=== PATIENT | male | born 1975 | race Caucasian/White ===

== ENCOUNTER 2019-12-23 08:53 | Outpatient (RCR) | payer BC, SELFPAY ==
--- NOTE | 2019-12-23 10:13 | PTOPEVAL ---
Thank you for referring Kennedy Roland to [facility].? The patient is scheduled to be seen for therapy? ____x/week for ___ weeks. Please review, sign, date and return this plan of care CARRIE. I agree with and certify that the following plan of care is medically necessary. Referring Physician Date Admitting Provider: Attending Provider: PHYSICIAN NOT ON STAFF Referring Provider: *PT Outpatient Evaluation Start: 12/23/19 09:12 Freq: Status: Active Protocol: Document 12/23/19 09:10 SARAH (Rec: 12/23/19 10:10 SARAH [email or web address]) Therapy Assessment Status Assessment Status Assessment Status Evaluation Evaluation Information Problem Diagnosis R achilles tendinopathy Onset 12/21/19 Subjective Information patient reports he began Query Text:As Reported By Patient/ having pain in the heel last Family year. he reports he had surgery for a bone spur back in february of last year. he reports he had a few follow ups with MD earlier this year, but has had continued pain in the R heel. he reports he has built up scar tissue formation and achilles tendinopathy of the R ankle. he reports this is his first bout of therapy to try and heal the pain prior to any more shots or surgeries. he reports he has pain all the time in the R heel and achilles tendon. he reports increased pain with nearly all movements, but more pain with walking, stairs, and driving. he reports he has to drive and control pedals with his L foot due to pain. Prior Level of Function Comments Additional Prior Level of Function he reports pain for more than Comments a year. he reports prior to surgery and since surgery he has been in pain and walking with a limp. 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 he reports a lot of walking at work. Pain Assessment Timing of Pain Assessment Timing of Pain Assessment Assessment Pain Scale Pain Scale Used Numeric (1 - 10) Self Report Pain Assessment Right Posterior Heel(s) Reported Pain Level
--- NOTE | 2020-02-09 14:20 | PTOPEVAL ---
Thank you for referring Kennedy Roland to [facility].? The patient is scheduled to be seen for therapy? ____x/week for ___ weeks. Please review, sign, date and return this plan of care CARRIE. I agree with and certify that the following plan of care is medically necessary. Referring Physician Date Admitting Provider: Attending Provider: PHYSICIAN NOT ON STAFF Referring Provider: *PT Outpatient Evaluation Start: 12/23/19 09:12 Freq: Status: Discharge Protocol: Document 02/04/20 13:59 [facility] (Rec: 02/04/20 14:55 [facility] [email or web address]) Therapy Assessment Status Assessment Status Assessment Status Discharge Evaluation Information Problem Diagnosis R achilles tendinopathy Additional Evaluation Detail LEFS = 46% functionally declined Subjective Information patient reports he feels good Query Text:As Reported By Patient/ this date. he reports no Family pain in the R ankle, but still some tightness and soreness at times with increased walking and activities. however, he reports he is able to manage any pain with stretching and exercises at home. Pain Assessment Timing of Pain Assessment Timing of Pain Assessment Assessment Self Report Self Report Pain Level 0 Pain Score Pain Score 0: Self Report Lower Extremity Range of Motion Ankle/Foot Range of Motion Right Ankle Dorsiflextion With Knee Extension 15 Range of Motion - Active Ankle Plantarflexion Range of Motion - 50 Active Query Text: Lower Extremity Muscle Strength Testing Ankle Strength Right Ankle Dorsiflexion Strength 5 Normal Ankle Plantarflexion Strength 4+ Good + Muscle Length Testing Muscle Length Testing Gastrocnemius Length (L) WFL,(R) Mild Tightness Gait Assessment Gait Pattern Assessment Gait Pattern No Deviations/Normal Stair Climbing Assessment Stair Climbing Assessment Stair Climbing Comments patient ambulates up stairs with reciprocal gait mechanincs. he ambulates down steps with marked time pattern , and is able to ambulate down steps with reciprocal gait mechanincs but presents with pulling/tightness/discomfort in the R ankle. General Exercise General Exercises Exercise Description -10 minutes passive calf Query Text:Record Sets, Reps, stretching and R ankle DF rom
== END 2020-02-04 09:41 | disposition home or self-care (01) ==
LOC: CHSPT 08:53
DX: M67.871 Other specified disorders of synovium, right ankle and foot (principal); M24.571 Contracture, right ankle
CPT/HCPCS: 97014; 97035; 97110; 97140; 97161; 97542; G0283

== ENCOUNTER 2023-11-22 06:56 | Outpatient (CLI) | payer BC, SELFPAY ==
[2023-11-22 07:21] LABS: Hematocrit 46.1 % (40.0-54.0); Hemoglobin 16.1 g/dL (14.0-18.0); Mean Corpuscular HGB Conc 34.9 g/dL (32-36); Mean Corpuscular Hemoglobin 29.5 pg (27.0-31.0); Mean Corpuscular Volume 84.4 fL (78.0-102.0); Mean Platelet Volume 9.2 fl (8.7-11.0); Platelet Count Result 268 K/mm3 (150-420); Red Blood Count 5.46 M/mm3 (4.70-6.10); Red Cell Distribution Width 12.6 % (11.6-14.4); White Blood Count 8.7 K/mm3 (4.8-10.8)
[2023-11-22 08:35] LABS: Alanine Aminotransferase 25 U/L (16-63); Albumin Level 3.8 g/dL (3.4-5.0); Alkaline Phosphatase 98 U/L (46-116); Anion Gap 5 mmol/L (4-12); Aspartate Amino Transferase 19 U/L (15-37); Bilirubin,Total 0.5 mg/dL (0.00-1.00); Blood Urea Nitrogen 16 mg/dL (7-18); Calcium 8.5 mg/dL (8.5-10.1); Carbon Dioxide 29 mmol/L (21-32); Chloride 102 mmol/L (98-108); Cholesterol 173 mg/dL (0-200); Estimated Glomerular Filt Rate 60; Glucose 87 mg/dL (70-99); HDL Direct 32 mg/dL (40-60); LDL Cholesterol Calculated 104 mg/dL (<130); Osmolality Calculated 282 mOsm/kg (285-295); Potassium 4.4 mmol/L (3.5-5.1); Prostate Specific Antigen 0.3 ng/mL (< OR = 4.0); Sodium 136 mmol/L (136-145); Total Protein 6.8 g/dL (6.4-8.2); Triglycerides 186 mg/dL (0-150)
== END 2023-11-22 06:57 | disposition home or self-care (01) ==
LOC: CHSLAB 06:58
PROVIDERS: PCP Internal Medicine; Visit Provider Internal Medicine
DX: Z13.6 Encounter for screening for cardiovascular disorders (principal); Z12.5 Encounter for screening for malignant neoplasm of prostate
CPT/HCPCS: 36415; 80053; 80061; 84153; 85025; G0103

== ENCOUNTER 2024-07-10 00:13 | Day surgery (SDC) | payer BC, SELFPAY ==
[2024-07-03 11:47] VITALS: BMI 36.9
--- OUTSIDE RECORDS SUMMARY | 2024-07-10 00:16 | XMS_ITS | Data Portability ---
Author Organization [facility] Address [address] [place] [address] Assessment Encounter Date Assessment Date Assessment LastModified by Organization Details LastModified Time 2023 2023 obtain old records obtain blood work prescribed Victoza see me back in 6 months schedule colonoscopy Not available 12/07/2023 15:24:30 05/18/2024 05/18/2024 colonoscopy continue with GLP 1 follow up 6 months smoking cessation [email or web address] Not available 05/18/2024 13:34:42 Plan of Treatment Reminders Order Date Submit Date Provider Last Modified By Organization Details Last Modified Time Details Appointments ANY 15 2024 09:30A Tamera Lr MD Not available Not available Not available Lab PSA, total, serum or plasma 2023 024 [facility]), [address] [place] [address], [id number], 11/22/2023 12:16:35 CBC w/ auto diff 2023 024 [facility]), [address] [place] [address], [id number], 11/22/2023 09:43:05 CMP, serum or plasma 2023 024 [facility]), [address] [place] [address], [id number], 11/22/2023 12:16:34 lipid panel, serum 2023 024 [facility] [address] [facility], [place], [address], 11/22/2023 12:16:34 Referral None recorded. Procedures colonosco py screening (PROC) 2024 025 [facility], [address], [id number], [place], [address], 06/18/2024 10:42:31 Surgeries None recorded. Imaging None recorded. Medication Orders None recorded. Patient TargetsNo targets recorded. Patient Instructions Encounter Date Encounter Id Patient Instructions Last Modified By Organization Details Last Modified Time 2023 [id number] A healthy lifestyle: care instructions [email or web address] Not available 12/07/2023 15:24:56 05/18/2024 [id number] A healthy lifestyle: care instructions [email or web address] Not available 05/18/2024 13:16:44 Quitting Tobacco : Care Instructions [email or web address] Not available 05/18/2024 13:16:44 Reason for Referral None Reported. Results Created Date Observation Date Name Description Value Unit Range Abnormal Flag Note LastModifiedBy Organization Detail LastModifiedTime 06/11/1905/25/2024 elect aneslmo smithgr am No observ ation record ed. BARCODE Not Available 2024 13:52:04 Result Notes None recorded. Problems Name Problem SNOMED Code Status Onset Date Resolution Date Notes Provider Name and Address Organization Details Recorded Time Obesity 021063992 Active 024 Andrés Lr MD Attn: Accounting ,[address] [facility], [place], [address] , [facility] 12/07/2023 15:24:37 Problem Notes None recorded. Procedures Surgical History None recorded. Imaging Results Imaging Date Name Status LastModified by Organization Details LastModified Time 05/25/2024 electrocardiogram completed BARCODE Informa tion not available 06/10/2024 13:52:04 Procedure Notes None recorded. Medical Equipment None Reported. Allergies No known drug allergies Medications Name Sig Start Date Stop Date Status Note LastModified by Organization Details LastModified Time Victoza 2-Jeromy 0.6 mg/0.1 mL (18 mg/3 mL) subcutaneous pen injector Inject 1.5 mg every day by subcutaneou s route. active Not Available Not Available No t Available Ozempic 0.25 mg or 0.5 mg (2 mg/3 mL) subcutaneous pen injector Inject 0.5 mg every week by subcutaneou s route. active Not Available Not Available No t Available Vitals Date Recorded Body height Body mass index (BMI) Body weight Heart rate Oxygen saturation Oxygen saturation in Arterial blood by Pulse oximetry Systolic blood pressure Diastolic blood pressure Provider Name and Address Organization Details Last Updated DateTime 4 185.42 cm 37.3 kg/m2 635194. 93 g 75 /min 97 % 97 % 120 mm[Hg] 90 mm[Hg] Aminata Johnson MA [facility] 4 11:52:21 Date Recorded Body height Body mass index (BMI) Body weight Heart rate Oxygen saturation Oxygen saturation in Arterial blood by Pulse oximetry Systolic blood pressure Diastolic blood pressure Provider Name and Address Organization Details Last Updated DateTime 5 185.42 cm 37.1 kg/m2 255793. 53 g 72 /min 98 % 98 % 128 mm[Hg] 74 mm[Hg] Aleida Stone MA [facility] 5 10:14:35 Social History Question Answer Notes LastModified by Organizat ion Details LastModified Time Tobacco Smoking Status Current Every Day Smoker Aminata Johnson MA [facility] 2023 11:45:35 Do You Have An Advance Directive? No Information not available 2023 What Is Your Level Of Alcohol Consumption? Occasional Information not available 2023 How Many Years Have You Consumed Alcohol? 30 Information not available 2023 Are You Blind Or Do You Have Difficulty Seeing? No Information not available 2023 What Is Your Level Of Caffeine Consumption? Heavy Information not available 2023 Have You Been To An Area Known To Be High Risk For COVID-19? No Information not available 2023 Are You Deaf Or Do You Have Serious Difficulty Hearing? No Information not available 2023 What Type Of Diet Are You Following? REGULAR Information not available 2023 Do You Or Have You Ever Used E-cigarettes Or Vape? Never Used Electronic Cigarettes Information not available 2023 Are There Any Guns Present In Your Home? No Information not available 2023 What Was The Date Of Your Most Recent Tobacco Screening? 05/18/2024 Information not available 05/18/2024 What Is Your Current Pack Years? 10packyears Information not available 2023 What Is Your Relationship Status? Information not available 2023 Do You Have Smoke And Carbon Monoxide Detectors In Your Home? Yes Information not available 2023 At What Age Did You Start Smoking Tobacco? 17 Information not available 2023 Do You Or Have You Ever Used Smokeless Tobacco? Never Used Smokeless Tobacco Information not available 2023 How Much Tobacco Do You Smoke? 1 PPW Information not available 2023 Do You Use Any Illicit Or Recreational Drugs? No Information not available 2023 Do You Use Sunscreen Routinely? No Information not available 2023 Has Tobacco Cessation Counseling Been Provided? Yes Information not available 05/18/2024 On What Date Was Tobacco Cessation Counseling Provided? 05/18/2024 Information not available 05/18/2024 How Many Years Have You Smoked Tobacco? 30 Information not available 2023 Do You Or Have You Ever Used Any Other Forms Of Tobacco Or Nicotine? Yes Information not available 2023 Sex: Male Functional Status Question Answer Note LastModified by Organizat ion Details LastModified Time Are you able to care for yourself? Yes Information not available 2023 What is your exercise level? Occasional Information not available 2023 Mental Status None recorded. Family History Nothing Reported. Medical History Condition Response Have you had a colonoscopy in the last 1 0 years? N Immunizations Vaccine Type Date Status Note Provider Nam e and Address Organization Details Recorded Time COVID-19, mRNA, LNP-S, PF, 100 mcg/0.5mL dose or 50 mcg/0.25mL dose 1 completed Aleida Stone, [place] null, [place] - [facility] 05/18/2024 10:15:05 COVID-19, mRNA, LNP-S, PF, 100 mcg/0.5mL dose or 50 mcg/0.25mL dose 1 completed Aleida Stone, [place], [place] [facility] 05/18/2024 10:15:05 COVID-19, mRNA, LNP-S, PF, 30 mcg/0.3 mL dose 2 completed Aleida Bertha, [place] null, [place] [facility] 05/18/2024 10:15:05 COVID-19, mRNA, LNP-S, bivalent, PF, 30 mcg/0.3 mL dose 2 completed Aleida Stone, [place] null, [place] [facility] 05/18/2024 10:15:05 Influenza, split virus, trivalent, preservative 5 completed Andrés Lr MD Attn: Accounting,[address] [place], [address], [place] [facility] 05/18/2024 13:34:03 Tdap 5 completed Andrés Lr MD Attn: Accounting,[address] [place], [address], [place] [facility] 05/18/2024 13:34:03 Past Encounters Encounter ID Performer Location Encounter Start Date Encounter Closed Date Diagnosis/Indication Diagnosis SNOMED-CT Code Diagnosis ICD10 Code Diagnosis Note [id number] Andrés Lr MD [facility] [place] [address] [place] [address] 2023 11:22:54 2023 12:52:57 Screening for cardiovascular system disease 085994551 Z13.6 Screening for malignant neoplasm of prostate 948313953 Z12.5 Obesity 712646777 E66.8 [id number] Andrés Lr MD [facility] [place] [facility] [place] [address] [place] [address] 05/18/2024 09:59:10 05/18/2024 10:55:50 Smoker 31359622 F17.200 Body mass index 30+ - obesity 329075080 Z68.37 Obesity 711336291 E66.9 Screening for malignant neoplasm of colon 988232031 Z12.11 Administra tion of influenza vaccine 42385705 Z23 Administra tion of diphtheria, pertussis, and tetanus vaccine 525669116 Z23 Health Concerns Section Related Observation LastModified by Organization Detai ls LastModified Time None Recorded Concern Status LastModified by Organization Details LastModified Time None Recorded Advance Directives Directive N: Payers Encounter Date Sequence Insurance Name Policy Number Policy Rajan Covered Member ID Rajan Member ID Guarantor Name 2023 1 [place] [id number] Kennedy Roland [id number] Kennedy Roland 05/18/2024 1 [employer] [id number] Kennedy Roland [id number] Kennedy Roland Notes Date Note Type Note Provider Name and Address Organization Details Recorded Time 2023 text/html problems with obesity he has been using some Victoza that he had at home would like to stay on he is down about 30 lb Andrés Lr MD Attn: Accounting,[address] [place], [address], [facility] 12/07/2023 15:24:58 05/18/2024 text/html seems to be tolerating the Ozempic Andrés Lr MD Attn: Accounting,[address] [place], [address], [facility] 05/18/2024 13:35:00
--- OUTSIDE RECORDS SUMMARY | 2024-07-10 00:16 | XMS_ITS | Clinical Summary ---
Author Organization [facility] Address [address] [place] [address] Care Team Providers [employer] Name Role Phone Unavailable Primary Care Provider Unavailabl e Social History Tobacco Use Types Packs/Day Years Used Date Smoking Tobacco: Never Assessed Sex and Gender Information Value Date Recorded Sex Assigned at Not on file Legal Sex Male 5:45 PM CDT Gender Identity Not on file Sexual Orientation Not on file Plan of Treatment Health Maintenance Due Date Last Done Comments Colorectal Cancer Screening Colonoscopy (10 Years) 1974 Annual Physical 1977 Hepatitis C 1992 DTaP, Tdap and Td Vaccines ( 1 - Tdap) 1993 Hepatitis B Vaccines (1 of 3 - 19+ 3-dose series) 1993 COVID-19 Vaccine (2023-2 5 season) 2023 Influenza Adult (#1) 2024 Meningococcal B Vaccine Aged Out No l onger eligible based on patient's age to complete this topic Meningococcal Vaccine Aged Out No юлия manuel eligible based on patient's age to complete this topic Pneumococcal Vaccine: Pediat rics (0 to 5 Years) and At-Risk Patients (6 to 64 Years) Aged Out No longer eligible b ased on patient's age to complete this topic RSV Immunizations Under 20 Months Aged Out No longer eligible based on patient's age to complete this topic
[2024-07-10 09:18] VITALS: BP 136/84; PULSE 74; RESP 20; TEMP 36.2; O2SAT 99; BMI 36.1
[2024-07-10] MEDS: LACTATED RINGERS 1,000 ML 150 ML IV CONT (09:22)
--- NOTE | 2024-07-10 09:28 | WPDANESEPPF ---
Anes - Initial Pre Proc Eval Procedure: Operation Date: 07/10/24 10:30 Proposed Procedures p Screening Colonoscopy - Jorge Raygoza MD Date/Time: 07/10/24 09:28 Surgeon: Jorge Raygoza MD Pre Op Diagnosis: Screening Patient Data Age: 48 Gender: M Height: 1.85 m Weight: 124.2 kg Last Vital Signs Temp 97.1 F L 07/10/24 09:18 Pulse 74 07/10/24 09:18 Resp 20 07/10/24 09:18 BP 136/84 07/10/24 09:18 Pulse Ox 99 07/10/24 09:18 O2 Del Method Room Air 07/10/24 09:18 Allergies Allergy/AdvReac Type Severity Reaction Status Date / Time No Known Allergies Allergy Verified 07/10/24 09:17 Home Medications ?Medication ?Instructions ?Recorded ?Confirmed ?Type No Home Medications 05/31/20 07/03/24 History Patient hx anesthesia problems: none Family hx anesthesia problems: none Results Review: All pre-operative results and documents have been reviewed as part of the pre-operative evaluation. [facility] Surgical History Surgical History History of foot operation Heel spur removal Social History Social History Smoking status: Current every day smoker Tobacco type: cigarettes Additional smoking assessment comments: Uses Zyn's occassionally. Alcohol intake: current Drinks per week: 4 Substance use: never Living arrangements: with family Anes - Eval Final PreProcedure Day of Procedure 07/10/24 09:28 Patient weight: obese Lungs: normal air movement Airway: Mallampati scale class II Neurological: alert and oriented Last oral intake: >/= 8 hours ASA classification: II Emergent: no Anesthetic plan: proceed Anesthesia type and monitoring: general GIVS and standard monitoring Results Review: All pre-operative results and documents have been reviewed as part of the pre-operative evaluation. Obesity, smoker, 2 cigs/day, smoked this am prior to arrival. Informed Consent: The patient's anesthetic plan and its attendant risks and benefits were discussed with the patient/family/POA. Questions were solicited and answers provided to the satisfaction of the patient/family/POA.
--- NOTE | 2024-07-10 09:48 | PM.HPGS ---
History of Present Illness History of Present Illness Consent: Risks, benefits, and alternatives have been discussed and questions answered. Patient agrees to proceed with procedure. Chief complaint: Screening Narrative: Kennedy Roland is a 48 year old male here for first screening colonoscopy Review of Systems Review of Systems: All systems reviewed & are unremarkable except as noted in HPI and below PMFSH Past Medical History Medical History (Updated 07/10/24 @ 09:49 by Jorge Raygoza MD) Colon cancer screening Surgical History Surgical History History of foot operation Heel spur removal Social History Social History Smoking status: Current every day smoker Tobacco type: cigarettes Additional smoking assessment comments: Uses Zyn's occassionally. Alcohol intake: current Drinks per week: 4 Substance use: never Living arrangements: with family Meds Home Medications and Allergies Home Medications ?Medication ?Instructions ?Recorded ?Confirmed ?Type No Home Medications 05/31/20 07/03/24 History Allergies Allergy/AdvReac Type Severity Reaction Status Date / Time No Known Allergies Allergy Verified 07/10/24 09:17 Vital Signs Vital Signs - 24 hr 07/10/24 09:18 Temperature 97.1 F L Pulse Rate 74 Respiratory Rate 20 Blood Pressure 136/84 Pulse Oximetry 99 Oxygen Delivery Room Air Exam Const: General: comfortable and no acute distress HENMT: Face/Nose/Sinus: Normal nares present Eyes: General: appearance normal, both eyes and all related structures Neck: Neck: no JVD Resp: Auscultation: clear to auscultation bilaterally Cardio: Rate: regular rate Rhythm: regular rhythm GI: Inspection: non-distended GI Palp: Yes Soft to palpation Skin: General skin exam: normal color Neuro: General: gait normal Speech: normal speech Extrem: General: normal to inspection Psych: Mental Status: mental status grossly normal Assessment and Plan Assessment and plan (1) Colon cancer screening: Code(s): Z12.11 - Encounter for screening for malignant neoplasm of colon Status: Acute Assessment and Plan: colonoscopy
[2024-07-10 10:08] VITALS: BP 113/74; PULSE 68; RESP 17; O2SAT 99
[2024-07-10 10:18] VITALS: BP 129/71; PULSE 72; RESP 19; O2SAT 100
[2024-07-10 10:28] VITALS: BP 125/82; PULSE 73; RESP 21; O2SAT 100
== END 2024-07-10 10:40 | disposition home or self-care (01) ==
PROVIDERS: PCP Internal Medicine; Referring Provider Internal Medicine; Visit Provider Internal Medicine Gastroenterology
PROC: 0DJD8ZZ Inspection of Lower Intestinal Tract, Via Natural or Artificial Opening Endoscopic (ICD-10-PCS; CPT 45378; principal; 2024-07-10 10:30)
DX: Z12.11 Encounter for screening for malignant neoplasm of colon (principal); D12.3 Benign neoplasm of transverse colon; K64.8 Other hemorrhoids; K57.30 Diverticulosis of large intestine without perforation or abscess without bleeding; F17.210 Nicotine dependence, cigarettes, uncomplicated; E66.9 Obesity, unspecified; Z68.36 Body mass index [BMI] 36.0-36.9, adult; Z98.890 Other specified postprocedural states
CPT/HCPCS: 45385; 88305; J2003; J2704; J7120

== ENCOUNTER 2024-09-22 08:19 | Outpatient (CLI) | payer BC, SELFPAY ==
--- OUTSIDE RECORDS SUMMARY | 2024-09-22 08:35 | XMS_ITS | Continuity of Care Document ---
Author Organization [place] - [place], [facility] Address [address] [place] [address] Care Team Providers Care Esthetician Permanent Makeup Artist Name Role Phone ANDRÉS LR Primary Care Provider Unavailabl e Assessment Encounter Date Assessment Date Assessment LastModified by Organization Details LastModified Time 09/21/2024 09/21/2024 Blood work terbinafine 250 daily times 12 weeks. See me back in 3 months. CBC CMP lipid healthy lifestyle care instructions quitting tobacco care instructions [place] [id number] Not available 09/21/2024 13:34:56 Plan of Treatment Reminders Order Date Submit Date Provider Last Modified By Organization Details Last Modified Time Details Appointments ANY 15 2024 09:15A M Andrés Lr MD Not available Not available Not available Lab CBC w/ auto diff [address], [address] [place] [address], [id number], 09/21/2024 13:13:30 CMP, serum or plasma [address], [address] [place] [address], [id number], 09/21/2024 13:13:30 lipid panel, serum [address] [place] [address], [address] [place] [address], [id number], 09/21/2024 13:13:30 Referral None recorded. Procedures None recorded. Surgeries None recorded. Imaging None recorded. Medication Orders terbinafi ne HCl 250 mg tablet 2024 025 [email or web address] [id number], [address] [place], [address], 09/21/2024 13:13:30 Patient TargetsNo targets recorded. Patient Instructions Encounter Date Encounter Id Patient Instructions Last Modified By Organization Details Last Modified Time 09/21/2024 [id number] A healthy lifestyle: care instructions [email or web address] Not available 09/21/2024 13:13:30 Quitting Tobacco : Care Instructions [email or web address] Not available 09/21/2024 13:13:30 Reason for Referral None Reported. Problems Name Problem SNOMED Code Status Onset Date Resolution Date Notes Provider Name and Address Organization Details Recorded Time Obesity 304034778 Active 024 Andrés Lr MD Attn: Accounting ,[address] [place], [address] , [facility] - [facility] 12/07/2023 15:24:37 Problem Notes None recorded. Medical Equipment None Reported. Allergies No known drug allergies Medications Name Sig Start Date Stop Date Status Note LastModified by Organization Details LastModified Time terbinafine HCl 250 mg tablet Take 1 tablet every day by oral route. 2024 active Not Available Not Available Not Avai lable Victoza 2-Jeromy 0.6 mg/0.1 mL (18 mg/3 mL) subcutaneou s pen injector Inject 1.5 mg every day by subcutane ous route. 09/21 completed Not Available Not Available Not Available Ozempic 0.25 mg or 0.5 mg (2 mg/3 mL) subcutaneou s pen injector Inject 0.5 mg every week by subcutane ous route. 09/21 completed Not Available Not Available Not Available Vitals Date Recorded Body height Body mass index (BMI) Body weight Heart rate Oxygen saturation Oxygen saturation in Arterial blood by Pulse oximetry Systolic blood pressure Diastolic blood pressure Provider Name and Address Organization Details Last Updated DateTime 185.42 cm 35.8 kg/m2 163304. 33 g 84 /min 98 % 98 % 124 mm[Hg] 84 mm[Hg] Katty Prince MA [place] 10:21:14 Social History Question Answer Notes LastModified by Organizat ion Details LastModified Time Tobacco Smoking Status Current Every Day Smoker DARRELL Zamora, [place] - [place] 2023 11:45:35 Do You Have An Advance Directive? No Information n ot available 2023 How Many Years Have You Consumed Alcohol? 30 Information not available 2023 Are You Blind Or Do You Have Difficulty Seeing? No Information n ot available 2023 What Is Your Level Of Caffeine Consumption? Heavy Information not available 2023 In The 14 Days Before Symptom Onset, Have You Had Close Contact With A Laboratory-confirm ed COVID-19 While That Case Was Ill? No Information n ot available 09/21/2024 In The 14 Days Before Symptom Onset, Have You Had Close Contact With A Person Who Is Under Investigation For COVID-19 While That Person Was Ill? No Information not available 09/21/2024 Have You Been To An Area Known To Be High Risk For COVID-19? No Information not available 2023 Are You Deaf Or Do You Have Serious Difficulty Hearing? No Information not available 2023 What Type Of Diet Are You Following? REGULAR Information n ot available 2023 Are There Any Guns Present In Your Home? No Information not available 2023 What Was The Date Of Your Most Recent Tobacco Screening? 09/21/2024 Information not available 09/21/2024 What Is Your Current Pack Years? 10packyears Information not available 2023 What Is Your Relationship Status? Information not available 2023 Do You Have Smoke And Carbon Monoxide Detectors In Your Home? Yes Information not available 2023 At What Age Did You Start Smoking Tobacco? 17 Information not available 2023 How Much Tobacco Do You Smoke? 1 PPW Information not available 2023 Do You Use Sunscreen Routinely? No Information not available 2023 Has Tobacco Cessation Counseling Been Provided? Yes [email or web address] Information not available 05/18/2024 On What Date Was Tobacco Cessation Counseling Provided? 09/21/2024 Information not available 09/21/2024 How Many Years Have You Smoked Tobacco? 30 Information not available 2023 Sex: Male Functional Status Question Answer Note LastModified by Organizat ion Details LastModified Time Do you use any illicit or recreational drugs? No Information not available 2023 Do you or have you ever used any other forms of tobacco or nicotine? Yes Information not available 2023 What is your level of alcohol consumption? Occasional Information not available 2023 Do you or have you ever used smokeless tobacco? Never used smokeless tobacco Information not available 2023 Are you able to care for yourself? Yes Information not available 2023 Do you or have you ever used e-cigarettes or vape? Never used electronic cigarettes Information not available 2023 What is your [...] or 50 mcg/0.25mL dose 1 completed Aleida Stone MA null, [place] - [facility] 05/18/2024 10:15:05 COVID-19, mRNA, LNP-S, PF, 100 mcg/0.5mL dose or 50 mcg/0.25mL dose 1 completed DARRELL Schmidt, [place] - [facility] 05/18/2024 10:15:05 COVID-19, mRNA, LNP-S, PF, 30 mcg/0.3 mL dose 2 completed Aleida Stone [place] null, [place] - [facility] 05/18/2024 10:15:05 COVID-19, mRNA, LNP-S, bivalent, PF, 30 mcg/0.3 mL dose 11/14/202 2 completed Aleida Stone [place] null, [place] - [facility] 05/18/2024 10:15:05 Influenza, split virus, trivalent, preservative 5 completed Andrés Lr MD Attn: Accounting,[address] [facility], [place], [address], [place] [facility] 05/18/2024 13:34:03 Tdap 5 completed Andrés Lr MD Attn: Accounting,[address] [facility], [place], [address], [place] [facility] 05/18/2024 13:34:03 Past Encounters Encounter ID Performer Location Encounter Start Date Encounter Closed Date Diagnosis/Indication Diagnosis SNOMED-CT Code Diagnosis ICD10 Code Diagnosis Note [id number] Andrés Lr MD [facility] [address] [place] [address] 09/21/2024 09:56:21 09/21/2024 11:20:59 Body mass index 30+ - obesity 496815038 Z68.35 Obese class II 563773485 1 [address]131 E66.812 Cigarette smoker 7150581 7 F17.210 Smoker 00732024 F17.200 Screening for cardiovascular system disease 794392384 Z13.6 Onychomyco sis of toenails 746891491 B35.1 Health Concerns Section Related Observation LastModified by Organization Detai ls LastModified Time None Recorded Concern Status LastModified by Organization Details LastModified Time None Recorded Payers Encounter Date Sequence Insurance Name Policy Number Policy Rajan Covered Member ID Rajan Member ID Guarantor Name 09/21/2024 1 [employer] [id number] Kennedy Roland [id number] Kennedy Roland Notes Date Note Type Note Provider Name and Address Organization Details Recorded Time 09/21/2024 text/html Has toenail fungus he wants treated obesity he is taking his GLP 1 without side effects Andrés Lr MD Attn: Accounting,[address] [facility], [place], [address], [place] [facility] 09/21/2024 13:35:21
--- OUTSIDE RECORDS SUMMARY | 2024-09-22 08:35 | XMS_ITS | Data Portability ---
Author Organization [facility] [employer], Main Office Address [address] [place] [address] Assessment No assessment recorded. Plan of Treatment Reminders Order Date Submit Date Provider Last Modified By Organization Details Last Modified Time Details Appointments None record ed. Lab None record ed. Referral None record ed. Procedures None record ed. Surgeries None record ed. Imaging None record ed. Medication Orders None record ed. Patient TargetsNo targets recorded. Patient InstructionsNo instructions recorded. Reason for Referral None Reported. Problems Name Problem SNOMED Code Status Onset Date Resolution Date Notes Provider Name and Address Organization Details Recorded Time Nausea and vomiting 66412147 Active Not Available [facility] 3 00:46:02 Postoperat tiffanie visit 044586345 Active 2018 Not Available [facility] 3 00:46:02 Postoperat tiffanie pain 646796897 Active 2018 Not Available [facility] 3 00:46:02 Overweight 675819085 Active Not Available [facility] 3 00:46:02 Pain in right foot 5914616592295 07 Active 2019 Not Available [facility] 3 00:46:02 Anxiety 52693143 Active Not Available [facility] 3 00:46:02 Diarrhea 56190741 Active Not Available [facility] 3 00:46:02 Insertiona l Achilles tendinopat hy 185619850 Active 2019 Not Available [facility] 3 00:46:02 Skin lesion 83129146 Active Not Available [facility] 3 00:46:02 Problem Notes None recorded. Medical Equipment None Reported. Medications Name Sig Start Date Stop Date Status Note LastModified by Organization Details LastModified Time amoxicillin 500 mg capsule 04/09 completed Not Available Not Available Not Available doxycycline hyclate 100 mg capsule 04/09 completed Not Available Not Available Not Available cephalexin 250 mg capsule 06/13 completed Not Available Not Available Not Available hydrocodone 5 mg-acetamin ophen 325 mg tablet Take 1 tablet every 8 hours by oral route as needed for 7 days. active Not Available Not Available No t Available permethrin 5 % topical cream 06/13 completed Not Available Not Available Not Available Wellbutrin SR 150 mg tablet, 12 hr sustained-r elease Take 1 tablet(s) twice a day by oral route. 05/14 completed Not Available Not Available Not Available oxycodone-a cetaminophe n 5 mg-325 mg tablet Take 1 tablet every 6 hours by oral route as needed for 7 days. active Not Available Not Available No t Available triamcinolo ne acetonide 0.1 % topical ointment 05/14 completed Not Available Not Available Not Available methylpredn isolone 4 mg tablets in a dose pack TAKE 6 TABLETS ON DAY 1 DIRECTED ON PACKAGE AND DECREASE BY 1 TAB EACH DAY FOR A TOTAL OF 6 DAYS active Not Available Not Available No t Available neomycin 3.5 mg/g-polymy smita B 10,000 unit/g-dexa meth 0.1 % eye oint APPLY TO EYES EVERY DAY AT BEDTIME active Not Available Not Available No t Available Vitals Date Recorded Body mass index (BMI) Body height Heart rate Body weight Systolic blood pressure Diastolic blood pressure Provider Name and Address Organization Details Last Updated DateTime 1 40.3 kg/m2 182.88 cm 76 /min 912462. 93 g 140 mm[Hg] 100 mm[Hg] Not Available [facility] 3 00:44:16 Social History None recorded. Functional Status None recorded. Mental Status None recorded. Family History Nothing Reported. Medical History No medical history recorded. Past Encounters Encounter ID Performer Location Encounter Start Date Encounter Closed Date Diagnosis/Indication Diagnosis SNOMED-CT Code Diagnosis ICD10 Code Diagnosis Note [id number] [facility] [address] [place] [address] 06/09/2020 00:00:00 06/10/2020 09:44:33 Health Concerns Section Related Observation LastModified by Organization Detai ls LastModified Time None Recorded Concern Status LastModified by Organization Details LastModified Time None Recorded Advance Directives Directive None Recorded Payers Insurance Date Sequence Insurance Name Policy Number Policy Rajan Covered Member ID Rajan Member ID Guarantor Name 06/06/2022 1 MICHAEL[employer]SEBASTIAN (PPO) [id number] Kennedy Roland [id number] Kennedy Roland
--- OUTSIDE RECORDS SUMMARY | 2024-09-22 08:35 | XMS_ITS | Data Portability ---
Author Organization [facility] Address [address] [place] [address] Care Team Providers Care Mechanical Specialist Name Role Phone ANDRÉS LR Primary Care Provider Unavailabl e Assessment Encounter Date Assessment Date Assessment LastModified by Organization Details LastModified Time 2023 2023 obtain old records obtain blood work prescribed Victoza see me back in 6 months schedule colonoscopy [email or web address] Not available 12/07/2023 15:24:30 05/18/2024 05/18/2024 colonoscopy continue with GLP 1 follow up 6 months smoking cessation [email or web address] Not available 05/18/2024 13:34:42 09/21/2024 09/21/2024 Blood work terbinafine 250 daily times 12 weeks. See me back in 3 months. CBC CMP lipid healthy lifestyle care instructions quitting tobacco care instructions [email or web address] Not available 09/21/2024 13:34:56 Plan of Treatment Reminders Order Date Submit Date Provider Last Modified By Organization Details Last Modified Time Details Appointments ANY 15 2024 09:15A M Andrés Lr MD Not available Not available Not available Lab CBC w/ auto diff 2024 025 [email or web address] [facility]), [address] [place] [address], [address], 09/21/2024 13:13:30 CMP, serum or plasma 2024 025 [email or web address] [facility]), [address] [place] [address], [address], 09/21/2024 13:13:30 lipid panel, serum [address]), [address] [place], [address], 09/21/2024 13:13:30 PSA, total, serum or plasma 2023 024 [facility]), [address] [place], [address], 11/22/2023 12:16:35 CBC w/ auto diff 2023 024 [facility]), [address] [place], [address], 11/22/2023 09:43:05 CMP, serum or plasma 2023 024 [facility]), [address] [place] [address], [address], 11/22/2023 12:16:34 lipid panel, serum 2023 024 [facility]), [address] [place] [address], [address], 11/22/2023 12:16:34 Referral None recorded. Procedures colonosco py screening (PROC) 2024 025 [facility], [address], [address], [place], [address], 09/07/2024 16:58:23 Surgeries None recorded. Imaging None recorded. Medication Orders terbinafi ne HCl 250 mg tablet 2024 025 [email or web address] [id number], [address] [place], [address], 09/21/2024 13:13:30 Patient TargetsNo targets recorded. Patient Instructions Encounter Date Encounter Id Patient Instructions Last Modified By Organization Details Last Modified Time 2023 [id number] A healthy lifestyle: care instructions [email or web address] Not available 12/07/2023 15:24:56 05/18/2024 [id number] A healthy lifestyle: care instructions [email or web address] Not available 05/18/2024 13:16:44 Quitting Tobacco : Care Instructions [email or web address] Not available 05/18/2024 13:16:44 09/21/2024 [id number] A healthy lifestyle: care instructions [email or web address] Not available 09/21/2024 13:13:30 Quitting Tobacco : Care Instructions [email or web address] Not available 09/21/2024 13:13:30 Reason for Referral None Reported. Results Created Date Observation Date Name Description Value Unit Range Abnormal Flag Note LastModifiedBy Organization Detail LastModifiedTime 06/11/1905/25/2024 elect anselmo wilson am No observ ation record ed. BARCODE Not Available 2024 13:52:04 Result Notes None recorded. Problems Name Problem SNOMED Code Status Onset Date Resolution Date Notes Provider Name and Address Organization Details Recorded Time Obesity 463201839 Active 024 Andrés Lr MD Attn: Accounting ,[address] [place], [address] , [facility] - [facility] 12/07/2023 15:24:37 Problem Notes None recorded. Medical [...] Updated DateTime 5 185.42 cm 37.1 kg/m2 440400. 53 g 72 /min 98 % 98 % 128 mm[Hg] 74 mm[Hg] Aleida Stone MA [facility] 5 10:14:35 Date Recorded Body height Body mass index (BMI) Body weight Heart rate Oxygen saturation Oxygen saturation in Arterial blood by Pulse oximetry Systolic blood pressure Diastolic blood pressure Provider Name and Address Organization Details Last Updated DateTime 5 185.42 cm 35.8 kg/m2 144443. 33 g 84 /min 98 % 98 % 124 mm[Hg] 84 mm[Hg] Katty Prince MA [facility] 5 10:21:14 Date Recorded Body height Body mass index (BMI) Body weight Heart rate Oxygen saturation Oxygen saturation in Arterial blood by Pulse oximetry Systolic blood pressure Diastolic blood pressure Provider Name and Address Organization Details Last Updated DateTime 4 185.42 cm 37.3 kg/m2 369196. 93 g 75 /min 97 % 97 % 120 mm[Hg] 90 mm[Hg] Aminata Johnson MA [facility] SI 4 11:52:21 Social History Question Answer Notes LastModified by Organizat ion Details LastModified Time Tobacco Smoking Status Current Every Day Smoker Aminata Johnson MA [facility] 2023 11:45:35 Do You Have An Advance [...] completed Andrés Lr MD Attn: Accounting,[address] [place], [address], [place] [facility] 05/18/2024 13:34:03 Tdap 5 completed Andrés Lr MD Attn: Accounting,[address] [place], [address], [place] [facility] 05/18/2024 13:34:03 Past Encounters Encounter ID Performer Location Encounter Start Date Encounter Closed Date Diagnosis/Indication Diagnosis SNOMED-CT Code Diagnosis ICD10 Code Diagnosis Note [id number] Andrés Lr MD [facility] [address] [place] [address] 2023 11:22:54 2023 12:52:57 Screening for cardiovascular system disease 050586062 Z13.6 Screening for malignant neoplasm of prostate 061298477 Z12.5 Obesity 602618153 E66.8 [id number] Andrés Lr MD [facility] [employer] [address] [place] [address] 05/18/2024 09:59:10 05/18/2024 10:55:50 Smoker 41498567 F17.200 Body mass index 30+ - obesity 670470727 Z68.37 Obesity 801049545 E66.9 Screening for malignant neoplasm of colon 812627828 Z12.11 Administra tion of influenza vaccine 32025966 Z23 Administra tion of diphtheria, pertussis, and tetanus vaccine 962436798 Z23 [id number] Andrés Lr MD [facility] [employer] [address] [place] [address] 09/21/2024 09:56:21 09/21/2024 11:20:59 Body mass index 30+ - obesity 240253602 Z68.35 Obese class II 275517963 1 [address] E66.812 Cigarette smoker 0717885 7 F17.210 Smoker 08118276 F17.200 Screening for cardiovascular system disease 459002272 Z13.6 Onychomyco sis of toenails 395123659 B35.1 Health Concerns Section Related Observation LastModified by Organization Detai ls LastModified Time None Recorded Concern Status LastModified by Organization Details LastModified Time None Recorded Advance Directives Directive N: Payers Insurance Date Sequence Insurance Name Policy Number Policy Rajan Covered Member ID Rajan Member ID Guarantor Name 09/18/2024 1 [employer] [id number] Kennedy Roland [id number] Kennedy Roland Notes Date Note Type Note Provider Name and Address Organization Details Recorded Time 2023 text/html problems with obesity he has been using some Victoza that he had at home would like to stay on he is down about 30 lb Andrés Lr MD Attn: Accounting,[address] [place], [address], [facility] - [facility] 12/07/2023 15:24:58 05/18/2024 text/html seems to be tolerating the Ozempic Andrés Lr MD Attn: Accounting,[address] [facility], [place], [address], [facility] 05/18/2024 13:35:00 09/21/2024 text/html Has toenail fungus he wants treated obesity he is taking his GLP 1 without side effects Andrés Lr MD Attn: Accounting,[address] [facility], [place], [address], [facility] 09/21/2024 13:35:21
[2024-09-22 08:42] LABS: Basophils Absolute Auto 0.11 K/mm3 (0.00-0.10); Basophils Percent Auto 1.3 % (0.0-1.0); Eosinophils Absolute Auto 0.17 K/mm3 (0.02-0.50); Hematocrit 46.8 % (40.0-54.0); Hemoglobin 16.2 g/dL (14.0-18.0); Immature Granulocyte Absolute 0.05 K/mm3 (0.00-0.00); Immature Granulocyte Percent A 0.6 % (0.0-0.0); Lymphocytes Absolute Auto 2.57 K/mm3 (1.10-4.50); Lymphocytes Percent Auto 30.3 % (18.0-42.0); Mean Corpuscular HGB Conc 34.6 g/dL (32-36); Mean Corpuscular Hemoglobin 29.2 pg (27.0-31.0); Mean Corpuscular Volume 84.5 fL (78.0-102.0); Monocytes Absolute Auto 0.53 K/mm3 (0.10-0.90); Monocytes Percent Auto 6.2 % (2.0-11.0); Neutrophils Absolute Auto 5.06 K/mm3 (1.70-7.20); Neutrophils Percent Auto 59.6 % (50.0-70.0); Platelet Count Result 270 K/mm3 (150-420); Red Blood Count 5.54 M/mm3 (4.70-6.10); Red Cell Distribution Width 12.3 % (11.6-14.4); White Blood Count 8.5 K/mm3 (4.8-10.8)
[2024-09-22 09:31] LABS: Alanine Aminotransferase 18 U/L (6-50); Albumin Level 4.2 g/dL (3.5-5.1); Alkaline Phosphatase 71 U/L (38-126); Anion Gap 6 mmol/L (4-12); Aspartate Amino Transferase 22 U/L (17-59); Bilirubin,Total 0.9 mg/dL (0.2-1.3); Blood Urea Nitrogen 14 mg/dL (9-20); Calcium 8.8 mg/dL (8.4-10.2); Carbon Dioxide 25 mmol/L (22-30); Chloride 106 mmol/L (98-107); Cholesterol 168 mg/dL (0-200); Estimated Glomerular Filt Rate > 60; Glucose 98 mg/dL (65-110); HDL Direct 31 mg/dL; LDL Cholesterol Calculated 104 mg/dL (<130); Osmolality Calculated 284 mOsm/kg (285-295); Potassium 4.4 mmol/L (3.4-5.0); Sodium 137 mmol/L (137-145); Total Protein 6.7 g/dL (6.3-8.2); Triglycerides 164 mg/dL (<150)
== END 2024-09-22 08:20 | disposition home or self-care (01) ==
LOC: CHSLAB 08:21
PROVIDERS: PCP Internal Medicine; Visit Provider Internal Medicine
DX: E66.812 Obesity, class 2 (principal); Z13.6 Encounter for screening for cardiovascular disorders
CPT/HCPCS: 36415; 80053; 80061; 85025

== ENCOUNTER 2024-11-16 08:44 | Outpatient (RCR) | payer BC, SELFPAY ==
--- NOTE | 2024-11-16 08:13 | OPREHPOC ---
Outpatient Therapy Plan of Care This is a Multidisciplinary Plan of Care that may contain components documented by all disciplines (PT, OT, and ST.) PT Problem 1 PT Problem #1 Knowledge Deficit PT Goal 1 Goal / Goal Update independent and compliant with HEP Target Visit 6 PT Problem 2 PT Problem #2 Pain PT Goal 1 Goal / Goal Update patient to report no more than 3/10 pain in the L Achilles/ankle. Target Visit 12 PT Problem 3 PT Problem #3 Impaired Range of Motion PT Goal 1 Goal / Goal Update 10 degrees or better active ankle DF bilat Target Visit 12 PT Problem 4 PT Problem #4 Impaired Gait PT Goal 1 Goal / Goal Update patient to ambulate with normal gait mechanics patient to ambulate up and down steps with reciprocal mechanics and no increased pain Target Visit 12 PT Problem 5 PT Problem #5 Impaired Functional Mobility PT Goal 1 Goal / Goal Update LEFS to display 35% or less functional deficits patient to display mild or less gastroc tightness on the L LE Target Visit 12
--- NOTE | 2024-11-16 08:13 | PTOPEVAL1 ---
Assessment and note entered by JT File, PT Evaluation Information Assessment Status Evaluation ICD-10 Condition Codes (PT) Pain in left ankle and joints of left foot M25.572 Onset 10/29/24 Subjective Information patient reports he is coming to skilled PT for his L ankle. he reports he has been having pain along the back of the L heel for about 6 months. he reports he was told he has achilles tendonitis. he reports so far he has had cortisone injections to the calf mm. he reports he was not told to try a heel lift yet. he reports he is wearing a splint to stretch the L ankle at night for about 10-15 minutes. he reports he has increased pain after getting up and walking from sitting for a long time. he reports he also has issues with stairs. 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 Reported Pain Level Pain Score 7: Self Report Assessment PT Clinical Summary mr. chou presents to skilled PT services for evaluation and treatment of pain in the L heel/ ankle. he presents today with signs and symptoms consistent with Achilles tendonitis of the L ankle . he presents with gastroc mm tightness, decreased rom, abnormal gait, reduced functional activity performance, and Haglunds deformity. continued skilled PT is indicated to improve his objective/ functional deficits and return to his prior level functional activity performance/quality of life. Plan of Care Interventions Gait Training,Hot Pack/Cold Pack,Manual Therapy, Neuro Re-education,Patient/Caregiver Education, Therapeutic Activities,Therapeutic Exercise, Ultrasound,Other Other Interventions dry needling PT Services Indicated Yes Treatment Frequency and 2x weekly for 12 visits Duration These treatments will address the objective and functional deficits as defined above. The patient will be advanced safely and appropriately in order for the patient to progress towards his/her prior level of function. Additional exercises will be introduced and as well as a comprehensive home exercise program upon discharge, if needed, ?to ensure carryover of functional gains achieved in the clinic. This treatment plan has been reviewed and agreement upon by the patient.
--- NOTE | 2024-12-18 13:50 | OPREHPOC ---
Outpatient Therapy Plan of Care This is a Multidisciplinary Plan of Care that may contain components documented by all disciplines (PT, OT, and ST.) PT Problem 1 PT Problem #1 Knowledge Deficit PT Goal 1 Goal / Goal Update independent and compliant with HEP Target Visit 6 Progress Met PT Problem 2 PT Problem #2 Pain PT Goal 1 Goal / Goal Update patient to report no more than 3/10 pain in the L Achilles/ankle. Target Visit 12 Progress Not Met PT Problem 3 PT Problem #3 Impaired Range of Motion PT Goal 1 Goal / Goal Update 10 degrees or better active ankle DF bilat Target Visit 12 Progress Not Met PT Problem 4 PT Problem #4 Impaired Gait PT Goal 1 Goal / Goal Update patient to ambulate with normal gait mechanics. met patient to ambulate up and down steps with reciprocal mechanics and no increased pain Target Visit 12 Progress Partially Met PT Problem 5 PT Problem #5 Impaired Functional Mobility PT Goal 1 Goal / Goal Update LEFS to display 35% or less functional deficits patient to display mild or less gastroc tightness on the L LE Target Visit 12 Progress Not Met
--- NOTE | 2024-12-18 13:50 | PTOPPROGNS ---
Assessment and note entered by JT File, PT Evaluation Information Assessment Status Progress ICD-10 Condition Codes (PT) Pain in left ankle and joints of left foot M25.572 Onset 10/29/24 Subjective Information patient reports the L ankle feels better. he reports overall the calf feel much better, but he still has pain in the L heel. he reports he does wear a heel lift in his work boots. he reports his pain was highest most recently after riding in a car for long trip of 14 hours. Assessment PT Clinical Summary mr. chou presents to skilled PT services for his 10th skilled therapy visit for the L Achilles/ ankle. he presents today with improved L ankle rom , but continued heel pain. he has met HEP goal, and made progress towards completion of all other goals. continued skilled PT is indicated to focus on achievement of remaining unmet goals and functional deficits. Plan of Care Interventions Gait Training,Hot Pack/Cold Pack,Manual Therapy, Neuro Re-education,Patient/Caregiver Education, Therapeutic Activities,Therapeutic Exercise, Ultrasound,Other Other Interventions dry needling PT Services Indicated Yes Treatment Frequency and continue per initial POC Duration These treatments will address the objective and functional deficits as defined above. The patient will be advanced safely and appropriately in order for the patient to progress towards his/her prior level of function. Additional exercises will be introduced and as well as a comprehensive home exercise program upon discharge, if needed, ?to ensure carryover of functional gains achieved in the clinic. This treatment plan has been reviewed and agreement upon by the patient.
--- NOTE | 2024-12-28 15:16 | OPREHPOC ---
Outpatient Therapy Plan of Care This is a Multidisciplinary Plan of Care that may contain components documented by all disciplines (PT, OT, and ST.) PT Problem 1 PT Problem #1 Knowledge Deficit PT Goal 1 Goal / Goal Update independent and compliant with HEP Target Visit 6 Progress Met PT Problem 2 PT Problem #2 Pain PT Goal 1 Goal / Goal Update patient to report no more than 3/10 pain in the L Achilles/ankle. Target Visit 12 Progress Not Met PT Problem 3 PT Problem #3 Impaired Range of Motion PT Goal 1 Goal / Goal Update 10 degrees or better active ankle DF bilat Target Visit 12 Progress Met PT Problem 4 PT Problem #4 Impaired Gait PT Goal 1 Goal / Goal Update patient to ambulate with normal gait mechanics. met patient to ambulate up and down steps with reciprocal mechanics and no increased pain. not met Target Visit 12 Progress Partially Met PT Problem 5 PT Problem #5 Impaired Functional Mobility PT Goal 1 Goal / Goal Update LEFS to display 35% or less functional deficits patient to display mild or less gastroc tightness on the L LE. met Target Visit 12 Progress Partially Met
--- NOTE | 2024-12-28 15:16 | PTOPREEVAL ---
Assessment and note entered by JT File, PT Evaluation Information Assessment Status Re-evaluation ICD-10 Condition Codes (PT) Pain in left ankle and joints of left foot M25.572 Onset 10/29/24 Subjective Information patient reports the calf feels great, but the ankle/heel feels worse. he reports it is much more localized than it used to be, but feels like the pain is getting worse. he reports he is scheduled to follow up with MD tomorrow. he reports today is the worst it has felt in a while. Reported Pain Level Pain Score 8: Self Report Assessment PT Clinical Summary mr. chou presents to skilled PT services for his 12th skilled PT visit. he presents today with significant pain in the L heel. he reports today is the worst he has felt in a while, and displays significant worse score on the LEFS compared to his initial evaluation and progress note. patient does have improved ankle rom today. he will hold therapy at this time to follow up with MD tomorrow , and determine next steps in POC. Plan of Care Interventions Gait Training,Hot Pack/Cold Pack,Manual Therapy, Neuro Re-education,Patient/Caregiver Education, Therapeutic Activities,Therapeutic Exercise, Ultrasound,Other Other Interventions dry needling PT Services Indicated Yes Treatment Frequency and hold therapy Duration These treatments will address the objective and functional deficits as defined above. The patient will be advanced safely and appropriately in order for the patient to progress towards his/her prior level of function. Additional exercises will be introduced and as well as a comprehensive home exercise program upon discharge, if needed, ?to ensure carryover of functional gains achieved in the clinic. This treatment plan has been reviewed and agreement upon by the patient.
== END 2025-02-14 23:59 | disposition home or self-care (01) ==
LOC: CHSPT 08:44
PROVIDERS: Visit Provider Podiatrist Foot & Ankle Surgery
DX: M76.62 Achilles tendinitis, left leg (principal)
CPT/HCPCS: 97110; 97112; 97140; 97161; 97530

== ENCOUNTER 2025-01-18 12:11 | Outpatient (CLI) | payer BC, SELFPAY ==
[2025-01-18 12:29] LABS: Hematocrit 47.5 % (40.0-54.0); Hemoglobin 16.4 g/dL (14.0-18.0); Immature Granulocyte Percent A 0.7 % (0.0-0.0); Lymphocytes Absolute Auto 2.42 K/mm3 (1.10-4.50); Mean Corpuscular HGB Conc 34.5 g/dL (32-36); Mean Corpuscular Hemoglobin 29.8 pg (27.0-31.0); Mean Corpuscular Volume 86.4 fL (78.0-102.0); Nucleated Red Blood Cells Absolute Auto 0.00 K/mm3 (0.00-0.00); Nucleated Red Blood Cells Perc 0.0 % (0-0.0); Platelet Count Result 271 K/mm3 (150-420); Red Blood Count 5.50 M/mm3 (4.70-6.10); White Blood Count 10.8 K/mm3 (4.8-10.8)
[2025-01-18 12:47] LABS: Alanine Aminotransferase 19 U/L (6-50); Albumin Level 4.7 g/dL (3.5-5.1); Alkaline Phosphatase 78 U/L (38-126); Anion Gap 7 mmol/L (4-12); Aspartate Amino Transferase 24 U/L (17-59); Bilirubin,Total 0.6 mg/dL (0.2-1.3); Blood Urea Nitrogen 18 mg/dL (9-20); Calcium 9.7 mg/dL (8.4-10.2); Carbon Dioxide 31 mmol/L (22-30); Chloride 104 mmol/L (98-107); Cholesterol 193 mg/dL (0-200); Estimated Glomerular Filt Rate > 60; Glucose 76 mg/dL (65-110); HDL Direct 38 mg/dL; Osmolality Calculated 294 mOsm/kg (285-295); Potassium 5.1 mmol/L (3.4-5.0); Sodium 142 mmol/L (137-145); Total Protein 8.4 g/dL (6.3-8.2); Triglycerides 252 mg/dL (<150)
[2025-01-18 13:03] LABS: Free T4 Free Thyroxine 1.24 ng/dL (0.78-2.19)
[2025-01-18 13:04] LABS: Free T3 3.98 pg/mL (2.18-3.98)
[2025-01-18 13:17] LABS: Thyroid Stimulating Hormone 1.350 uIU/mL (0.465-4.680)
--- OUTSIDE RECORDS SUMMARY | 2025-01-18 13:17 | XMS_ITS | Clinical Summary ---
Author Organization [facility] Address [address] [place] [id number] Care Team Providers Care Environmental Science Instructor Name Role Phone Unavailable Primary Care Provider [...] of 3 - 19+ 3-dose series) 1993 Pneumococcal Vaccine: 50+ Ye ars (1 of 1 - PCV) 2024 Zoster Vaccines (1 of 2) 2024 COVID-19 Vaccine (2023-2 5 season) 2024 Influenza Adult (#1) 2025 Meningococcal B Vaccine Aged Out No l onger eligible based on patient's age to complete this topic Meningococcal Vaccine Aged Out No юлия manuel eligible based on patient's age to complete this topic RSV Immunizations Under 20 Months Aged Out No longer eligible based on patient's age to complete this topic
== END 2025-01-18 12:12 | disposition home or self-care (01) ==
LOC: CHSLAB 12:14
PROVIDERS: PCP Internal Medicine; Visit Provider Internal Medicine
DX: E66.812 Obesity, class 2 (principal); E66.3 Overweight
CPT/HCPCS: 36415; 80053; 80061; 84439; 84443; 84481; 85025